=== PATIENT | male | born 1960 | race Caucasian/White ===

== ENCOUNTER 2023-07-03 14:24 | Emergency (ER) | payer MEDICAID ==
[~2023-07-03] VITALS: Ht 162.6 cm; Wt 80.9 kg
[2023-07-03 14:36] VITALS: TEMP 98.2
[2023-07-03 15:06] LABS: BASOPHILS % (AUTO) 0.3 % (0-1); EOSINOPHILS % (AUTO) 0.1 % (0-6); HEMOGLOBIN 13.8 g/dl (14.0-17.9); LYMPHOCYTES # (AUTO) 0.7 X10'3 (1.1-4.8); MEAN CORPUSCULAR HEMOGLOBIN 34.3 PG (27.0-31.0); MEAN CORPUSCULAR HGB CONC 34.6 g/dL (33.0-36.5); MEAN CORPUSCULAR VOLUME 99.2 FL (78-98); MEAN PLATELET VOLUME 6.9 FL (7.4-10.4); MONOCYTES # (AUTO) 0.6 X10'3 (0-0.9); MONOCYTES % (AUTO) 4.1 % (2-12); NEUTROPHILS # (AUTO) 12.6 X10'3 (1.8-7.7); NEUTROPHILS % (AUTO) 90.5 % (42-75); PLATELET COUNT 237 X10'3 (140-440); RED BLOOD COUNT 4.04 X10'6 (4.70-6.10); RED CELL DISTRIBUTION WIDTH 14.7 % (11.5-14.5); WHITE BLOOD COUNT 13.9 X10'3 (4.5-11.0)
[2023-07-03 15:16] LABS: ALANINE AMINOTRANSFERASE 27 U/L (12-78); ALBUMIN 3.8 G/DL (3.4-5.0); ALBUMIN/GLOBULIN RATIO 1.2 (1.1-1.5); ALKALINE PHOSPHATASE 94 IU/L (46-116); ANION GAP 12 (8-16); ASPARTATE AMINO TRANSFERASE 24 U/L (10-37); BILIRUBIN,TOTAL 1.1 MG/DL (0.1-1.0); BLOOD UREA NITROGEN 10 MG/DL (7-18); BUN/CREATININE RATIO 11.6 (10.0-20.0); CALCIUM 9.2 MG/DL (8.5-10.1); CHLORIDE 93 MMOL/L (99-107); CREATININE 0.86 MG/DL (0.60-1.10); GLUCOSE 124 MG/DL (70-104); POTASSIUM 3.2 MMOL/L (3.5-5.1); SODIUM 126 MMOL/L (135-145); TOTAL CARBON DIOXIDE 21.5 MMOL/L (24-32); eCRCL 76 ML/MIN; eGFR > 90 ML/MIN
[2023-07-03 15:23] LABS: ETHANOL < 10 MG/DL (<10); PRO BRAIN NATRIURETIC PEPTIDE 123 PG/ML (0-125)
[2023-07-03] MEDS ORDERED: normal saline 1000ML IV soln IVB ONE (16:40)
[2023-07-03] MEDS ORDERED: pantoprazole 40 MG vial IV ONE (16:40)
[2023-07-03] MEDS ORDERED: LORazepam 2 mg/ml vial IV ONE ×3 (16:40→16:45)
[2023-07-03] MEDS ORDERED: metoclopramide 5 mg/ml inj IV ONE (16:40)
[2023-07-03 16:56] LABS: MAGNESIUM 1.5 MG/DL (1.5-2.4)
[2023-07-03] MEDS ORDERED: pantoprazole 40MG/NS 100ML BAG 100 ML IV ONE (17:50)
[2023-07-03 19:49] LABS: BILIRUBIN,URINE NEGATIVE (Neg); CLARITY,URINE CLEAR (Clear); COLOR,URINE STRAW (Yellow); GLUCOSE, URINE NEGATIVE (Neg); KETONES,URINE NEGATIVE (Neg); LEUKOCYTE ESTERASE ,URINE NEGATIVE (Neg); NITRITES, URINE NEGATIVE (Neg); OCCULT BLOOD,URINE NEGATIVE (Neg); PROTEIN,URINE NEGATIVE (Neg); UROBILINOGEN,URINE 0.2 E.U/dL (0.2-1.0)
[2023-07-03 19:54] LABS: UA COLLECTION TYPE CLN CATCH MIDSTREAM
[2023-07-03 20:06] LABS: URINE AMPHETAMINE SCREEN NEGATIVE (Neg); URINE BARBITUATE SCREEN NEGATIVE (Neg); URINE BENZODIAZEPINES SCREEN NEGATIVE (Neg); URINE CANNABINOID SCREEN NEGATIVE (Neg); URINE COCAINE SCREEN NEGATIVE (Neg); URINE METHADONE SCREEN NEGATIVE (Neg); URINE OPIATE SCREEN NEGATIVE (Neg); URINE PHENCYCLIDINE SCREEN NEGATIVE (Neg)
[2023-07-03 21:30] VITALS: BP 140/82; PULSE 87; RESP 18; O2SAT 94
[2023-07-03] MEDS ORDERED: ENAL20TA75 PO (21:31)
[2023-07-03] MEDS ORDERED: OXCA300T16 PO (21:31)
[2023-07-03] MEDS ORDERED: ARIP5TAB14 PO (21:31)
[2023-07-03] MEDS ORDERED: VENL75CA61 PO (21:31)
[2023-07-03] MEDS ORDERED: HYDR25TA5 PO (21:31)
== END 2023-07-03 21:53 | disposition home or self-care (01) ==
LOC: ER 14:25
DX: R53.1 Weakness (principal); K21.9 Gastro-esophageal reflux disease without esophagitis
CPT/HCPCS: 36415; 70450; 71045; 80053; 80305; 80320; 81003; 83690; 83735; 83880; 84484; 85025; 93005; 96361; 96365; 96375; 99285; C9113; J2060; J2765; J7030